=== PATIENT | female | born 1970 | race Caucasian/White ===

== ENCOUNTER 2017-10-27 09:33 | Day surgery (SDC) | payer OTHER ==
[~2017-10-27 09:33] MED LIST: CEFAZOLIN/SWI 1gm 1 GM/10 ML SYR IVP SCH
[2017-10-27] MEDS ORDERED: CEFAZOLIN/SWI 1gm 1 GM/10 ML SYR ONE (10:17)
[2017-10-27] MEDS ORDERED: Ringers Lactate 1,000 ML IV ONE (10:17)
[2017-10-27] MEDS ORDERED: BUPIVACA 0.25%/EPI 0.0005% MDV 50 ML VIAL ONE (10:19)
[2017-10-27] MEDS ORDERED: MIDAZOLAM HCL 2 MG/2 ML INJ ONE (11:39)
[2017-10-27] MEDS ORDERED: LIDOCAINE 1% MPF 5 ML VIAL ONE (11:44)
[2017-10-27] MEDS ORDERED: PROPOFOL 200 MG/20 ML VIAL IV ONE (11:44)
[2017-10-27] MEDS ORDERED: FENTANYL CITR 100 MCG/2 ML ONE (11:45)
[2017-10-27] MEDS ORDERED: ROCURONIUM 50 MG/5 ML VIAL IV ONE (12:00)
[2017-10-27] MEDS ORDERED: DEXAMETHASONE 10 MG/ML VIAL ONE (12:00)
[2017-10-27] MEDS ORDERED: GLYCOPYRROLATE 0.2 MG/ML SYR ONE (12:33)
[2017-10-27] MEDS ORDERED: NEOSTIGMINE 1 MG/ML -5 ML SYRINGE ONE (12:35)
[2017-10-27] MEDS ORDERED: KETOROLAC 30 MG/ML INJ ONE (12:35)
--- NOTE | 2017-10-27 12:36 | P.OP ---
Education Rep: KELLEN LEMOS Preoperative diagnosis: Midline Ventral Hernia Postoperative diagnosis: Midline Ventral Hernia Primary procedure: Laparoscopic repair of Midline Ventral Hernia with mesh Anesthesia: GETA + Local Estimated blood loss: <5cc Specimen: None Findings: Midline periumbilical hernia Complications: None Implants: Bard Ventralite ST [id number] mesh with echo position Transferred to: Recovery Room Condition: Good
[2017-10-27] MEDS ORDERED: ONDANSETRON HCL 40 MG/20 ML VIAL ONE (12:38)
[2017-10-27 12:45] VITALS: TEMP 97
[2017-10-27] MEDS: MEPERIDINE HCL 50 MG/ML AMP ONE ×4 (13:04→13:21)
[2017-10-27 13:40] VITALS: BP 113/61; O2SAT 99
[2017-10-27] MEDS ORDERED: HYDROCODONE/APAP 5/325 MG TAB ONE (14:25)
--- NOTE | 2017-10-28 00:40 | OP ---
Date of Procedure: 10/27/2017 Surgeon: Eyal Rebollar MD, Crm Developer: Kelley Lopez. Preoperative Diagnosis: Midline ventral hernia. Postoperative Diagnosis: Midline ventral hernia. Procedure Performed: Laparoscopic repair of midline ventral hernia with mesh. Anesthesia: General endotracheal plus local with 0.25% Marcaine with epinephrine. Estimated Blood Loss: Less than 5 cc. Specimen: None. Findings: Midline periumbilical hernia extending inferiorly from the umbilicus, it is slightly super ior, defect was approximately 5 cm in longitudinal by 3 cm in lateral perpendicular plane. Complications: None. Implants: Bard Ventralight ST 15 cm x 10 cm mesh with Echo Positioning System. Disposition: Transferred to the recovery room in good condition. Procedure In Detail: After informed consent was obtained, the patient was brought to the operating r oom, prepped and draped in the usual sterile fashion. After adequate anesthesia achieved, a left low er quadrant incision was made through the subcutaneous tissues after appropriately anesthetizing. It was sharply incised. A 5-mm trocar was introduced in the abdomen without evidence of complication u sing optical positioning. The abdomen was inflated at this time. The area was inspected for any inj ury to the vital structures, no injury to vital structures appreciated at this time. Additional troc ar site was chosen in the right lower quadrant was similarly anesthetized and sharply incised. A 5-m m trocar was placed without evidence of complication. The left lower quadrant incision was then exte nded and a 12 mm trocar was exchanged for the 5 mm trocar. Thus 2 trocars were placed. Inspection o f the midline saw a periumbilical hernia in the inferior position with some slight extension superior ly and inferiorly for approximately 5 cm in the longitudinal axis. An appropriate sized mesh of Bard Ventralight ST, 15 cm x 10 cm mesh, was chosen. We placed it through the lateral port and reinsuffl ation was obtained at this time. After using the Echo Positioning System and centrally locating the mesh by making a separate stab incision in the supraumbilical position, the Mango-Amber suture pa sser was used to grasp and elevate the mesh. The mesh balloon system was then deployed, and the mesh was oriented in the proper orientation. The absorbable fixation tacks were then used to secure to t he anterior abdominal wall. The balloon system was then removed and found to be intact. The remaini ng tacks were then used to circumferentially secure the mesh to the anterior abdominal wall using a d ouble crown method with good approximation of the tissues. No additional bleeding from the area and good approximation of mesh was appreciated at the end of the procedure. Under de-sufflation, the are a was inspected once again and found to be in good position. The lateral trocar was then removed and the trocar site closed using a Mango-Amber suture passer with 0 Vicryl in interrupted fashion wi th good approximation of tissue. The abdomen was then completely desufflated under direct visualizat ion without evidence of complication. All trocars were then removed. The skin incisions were copiou sly irrigated and closed with a 4-0 Monocryl in a running fashion. Dermabond was placed over top. T he patient tolerated the procedure without evidence of complication, transferred to the PACU in good condition. All counts were correct at the end of the case. [email or web address]/[email or web address] Voice ID: [id number] Report ID: [id number]
== END 2017-10-27 16:30 | disposition home or self-care (01) ==
LOC: OR 09:33
PROVIDERS: ATTEND Surgery
PROC: 0WUF4JZ Supplement Abdominal Wall with Synthetic Substitute, Percutaneous Endoscopic Approach (ICD-10-PCS; principal; 2017-10-27 12:15)
DX: K43.9 Ventral hernia without obstruction or gangrene (principal); E88.81 Metabolic syndrome and other insulin resistance; E78.2 Mixed hyperlipidemia; Z79.82 Long term (current) use of aspirin; Z88.2 Allergy status to sulfonamides
CPT/HCPCS: J0690; J1100; J2175; J2250; J2405; J2710; J3010